=== PATIENT | female | born 1955 | race Caucasian/White ===

== ENCOUNTER 2017-01-15 14:18 | Emergency (ER) | payer OTHER ==
[~2017-01-15 14:18] MED LIST: ALDACTONE25 MG PO; ALLOPURINOL5 GM; AMLODIPINE BESYL5 MG PO; ANTIBIOTIC; ASPIR-TRIN325 MG PO; ASPIRIN ENTERI325 M1 DOB; ASPIRIN81 M2; ASPIRIN81 MG PO; ATENOLOL PO; ATENOLOL25 GM; ATENOLOL50 MG PO; ATORVASTATIN CA80 MG PO; BAYER ASPIRIN325 M1 PO; CALCIUM1 TAB.CHEW; CELEBREX100 MG PO; COMBIVENT MININEB INH; FERRO-TIME325 MG PO; FLEXERIL PO; FUROSEMIDE40 MG PO; GABAPENTIN300 M2 PO; GLIPIZIDE10 MG PO; GLIPIZIDE10 MG/BOTT PO; GLIPIZIDE2.5 MG/BO1; GLUCOPHAGE500 MG PO; GLUCOTROL XL10 MG PO; GRALISE1 EACH; IMDUR-ER30 MG DOB; IMDUR-ER30 MG PO; IRON15 MG/1 ML; ISOSORBIDE DINI30 MG PO; ISOSORBIDE MONO30 M1 PO; ISOSORBIDE MONO30 MG PO; ISOSORBIDE1 GM; KCL PO; LANTUS100 U/M1 SQ; LANTUS100 U/ML; LANTUS100 U/ML SUBQ; LANTUS100 UNITS/ SUBQ; LASIX20 MG; LASIX20 MG PO; LIPITOR; LIPITOR PO; LIPITOR20 MG PO; LIPITOR80 MG PO; LORTAB 7.51 TAB 7.5/ PO; METFORMIN HCL500 M1 PO; METFORMIN HYDRO25 GM; METFORMIN PO; NEURONTIN600 MG PO; NITROGLYGERIN0.4 MG SL; NOVOLOG100 U/ML SUBQ; PERCOCET 10/3251 TAB PO; PHENERGAN25 MG PO; POTASSIUM99 M1; PREDNISONE10 MG PO; QUINAPRIL HCL20 M1; QUINAPRIL HCL20 M1 PO; QUINAPRIL HCL20 MG PO; TENORMIN50 MG PO; VICODIN PO; VITAMIN D 22000 UNIT; VITAMIN D31000 UNI1 PO; VITAMIN D31000 UNIT PO
[2017-01-15 14:45] LABS: URINE SOURCE CLEAN CATCH
[2017-01-15 14:54] LABS: URINE APPEARANCE CLEAR; URINE BILIRUBIN NEG (NEG); URINE BLOOD TRACE-LYSED (NEG); URINE COLOR YELLOW; URINE GLUCOSE 100 MG/DL (NORM); URINE KETONE NEG (NEG); URINE LEUKOCYTE ESTERASE NEG (NEG); URINE NITRATE NEG (NEG); URINE PH 5.5 (5-8); URINE PROTEIN NEG (NEG); URINE SPECIFIC GRAVITY 1.015 (1.003-1.035)
[2017-01-15 15:08] LABS: MICRO INDICATED? YES
[2017-01-15 15:09] LABS: CULTURE INDICATED? NO; URINE BACTERIA NEG (NEG); URINE RBC 0-2 /[HPF] (0-2); URINE WBC 0-2 /[HPF] (0-5)
== END 2017-01-15 16:18 | disposition home or self-care (01) ==
LOC: SED 14:18
PROVIDERS: Emergency Medicine
DX: S39.012A Strain of muscle, fascia and tendon of lower back, initial encounter (principal); E11.65 Type 2 diabetes mellitus with hyperglycemia; I10 Essential (primary) hypertension; F17.200 Nicotine dependence, unspecified, uncomplicated; Z98.890 Other specified postprocedural states; Z88.1 Allergy status to other antibiotic agents; X58.XXXA Exposure to other specified factors, initial encounter; Y92.009 Unspecified place in unspecified non-institutional (private) residence as the place of occurrence of the external cause
CPT/HCPCS: 81003; 82947; 96372; 99283; J1885

== ENCOUNTER 2017-01-17 09:08 | Emergency (ER) | payer OTHER ==
--- NOTE | ~2017-01-17 | CT98 ---
[facility] A Service of [facility] & [facility] RADIOLOGY TEXT RESULTS PATIENT: HEMA TOBIAS LOCATION: [facility] : 53 UNIT #: [id number] AGE: [address]: Kisha Person SEX: F ORDER DR: [id number] [facility] [address] [place], [place] [address] [id number] E MR#: [id number] Acc #: [id number] NAME: HEMA TOBIAS. : 1955 SEX: F STUDY DATE/TIME: 01/17/2017 9:45 UNIT: [facility] ROOM: STUDY DESCRIPTION: CT Lumbar Spine Wo Cont Attending Physician: Kisha Person Pa-C Ordering Physician: Kisha Person Pa-C Primary Care Physician: Primary Care Physician No MEDICAL IMAGING REPORT This report is preliminary unless electronic signature is present EXAM CT lumbar spine, 01/17/2017 HISTORY CHF, hypertension, insulin dependent diabetes. Breast cancer 2008. Prior back surgery. Low back pain radiates to legs since 01/14/2017. TECHNIQUE This CT exam was performed with one or more of the following radiation dose reduction techniques: automatic exposure control, adjustment of mA and/or kV according to patient size, and iterative reconstruction. FINDINGS CT of the lumbar spine performed. Bone and soft tissue windows reviewed. Sagittal and coronal reconstructions performed. Study limited due to motion artifact and beam hardening artifact related to the patient's large body habitus. The visualized lung bases are clear. Visualized portions of liver, spleen, pancreas unremarkable. Indeterminate 1.3 cm x 1.5 cm nodule in the left adrenal gland unchanged from May 2013 and favored to be benign/adenoma given stability over this time frame. The visualized kidneys are unremarkable. The visualized alimentary canal shows evidence of sigmoid diverticulosis. Extensive atherosclerotic arterial calcification. No aneurysm. 5 lumbar-type vertebral segments. Straightening of the normal lumbar lordosis. 2.0 mm anterolisthesis L4 on L5 likely due to prominent facet and disc degenerative change at this level. The vertebral body heights are normal. There is mild generalized narrowing of intervertebral disc spaces with moderate narrowing at L4-L5 including vacuum disc phenomena L4-L5. There is marked narrowing of the L5-S1 intervertebral disc. There is no fracture. Believe the patient is status post left L5 laminotomy. Please correlate with surgical history. T11-T12, T12-L1, L1-L2: No disc bulge or herniation. Spinal canal diameter normal. Neural foramina patent without evidence of exiting nerve STS. [facility] A Service of [facility] RADIOLOGY TEXT RESULTS PATIENT: HEMA TOBIAS LOCATION: [facility] : 53 UNIT #: [id number] AGE: [address]: Kisha Person SEX: F ORDER DR: impingement. L2-L3: Moderate facet degenerative change. Mild posterior concentric disc bulge. Somewhat short pedicles. Straightening of the anterior thecal sac. Mild central spinal canal narrowing. Neural foramina patent without evidence of exiting nerve impingement. L3-L4: Somewhat short pedicles in conjunction with mild posterior concentric disc bulge and moderate to marked facet degenerative change. Moderate central spinal canal narrowing. There is narrowing of the bilateral lateral recesses. The neural foramina show mild narrowing. There is no clear indication of exiting nerve impingement. L4-L5: Anterolisthesis of L4 on L5 as noted. Posterior concentric disc bulge in conjunction with the anterolisthesis, relatively short pedicles, and marked facet degenerative change. There is marked spinal canal narrowing. Significant mass effect on the thecal sac. Descending nerve root crowding and significant mass effect on the intrathecal nerve roots felt to be present. There is mass effect on the bilateral lateral recesses probably greater on the right than left overall. Narrowing of the neural foramina right greater than left. Exiting right nerve impingement is a consideration. L5-S1: Posterior disc bulge is suggested. There may be some mass effect on thecal sac. This is difficult to determine given beam-hardening artifact. Moderate to marked facet degenerative changes. Narrowing of the bilateral lateral recesses. Mass effect on descending S1 nerves is a consideration particularly on the left. Correlate with dermatomal exam. There is moderate to marked left foraminal narrowing. Exiting left L5 nerve impingement is a consideration. There is probably no mass effect on the exiting right L5 nerve. IMPRESSION 1. Please see the complete dictation above for full details. The study is somewhat limited secondary to motion artifact and to beam hardening artifact related to the patient's large body habitus. 2. There is no evidence of acute fracture or malalignment. Multilevel degenerative changes as outlined in [id number] discussions. Most pronounced findings are at L4-L5. There is baseline spinal canal narrowing due to short pedicles at this level. There is a mild 2.0 mm anterolisthesis of L4 on L5. These factors in conjunction with a posterior concentric disc bulge and marked facet degenerative change is causing severe spinal canal narrowing. There is marked mass effect on the thecal sac. Descending nerve root crowding and mass effect on the intrathecal nerve roots is felt to be present. There is significant mass effect on the bilateral lateral recesses, more pronounced on the right than left. Mass effect on descending L5 nerves likely. Right greater than left foraminal narrowing. Mass effect on the exiting right L4 nerve is a consideration. Please see [facility] A Service of [facility] RADIOLOGY TEXT RESULTS PATIENT: HEMA TOBIAS LOCATION: [facility] : 53 UNIT #: [id number] AGE: [address]: Kisha Person SEX: F ORDER DR: discussion of significant degenerative changes at other levels in body of report. 3. Atherosclerotic arterial calcifications. Relatively small caliber distal aorta. Combination of [place] small vessel and atherosclerotic disease could, in the appropriate clinical context, lead to symptomatic lower extremity vascular insufficiency. Correlate clinically. 4. Stable 1.3 cm x 1.5 cm indeterminate left adrenal nodule. No change from 2013 favors benign etiology such as adenoma. 5. Diverticulosis. Dictated by... Mynor Nieves M.D. THIS IS AN ELECTRONICALLY VERIFIED REPORT Mynor Nieves M.D. at 01/18/2017 5:13 PM GIAN/wesly TD: 01/17/2017 13:30 JOB #: [id number] MEDICAL IMAGING REPORT Page 1 of 1 COPY
== END 2017-01-17 12:34 | disposition home or self-care (01) ==
LOC: CED 09:08
DX: M54.16 Radiculopathy, lumbar region (principal); E11.9 Type 2 diabetes mellitus without complications; I10 Essential (primary) hypertension; F17.210 Nicotine dependence, cigarettes, uncomplicated; Z88.8 Allergy status to other drugs, medicaments and biological substances; Z79.4 Long term (current) use of insulin; Z79.82 Long term (current) use of aspirin
CPT/HCPCS: 72131; 99284; J1885; J2360

== ENCOUNTER 2017-04-11 12:42 | Emergency (ER) | payer OTHER ==
--- NOTE | ~2017-04-11 | CR132 ---
[facility] A Service of [facility] & [facility] RADIOLOGY TEXT RESULTS PATIENT: HEMA TOBIAS LOCATION: [facility] : 53 UNIT #: [id number] AGE: [address]: Tucker Malone DO SEX: F ORDER DR: [id number] [facility] [address] [place], [place] [address] [id number] E MR#: [id number] Acc #: [id number] NAME: HEMA TOBIAS : 1955 SEX: F STUDY DATE/TIME: 04/11/2017 13:47 UNIT: [facility] ROOM: STUDY DESCRIPTION: CR Forearm 2 View Lt Attending Physician: Tucker Malone D.O. Ordering Physician: Tucker Malone D.O. Primary Care Physician: No Primary Care Physician MEDICAL IMAGING REPORT This report is preliminary unless electronic signature is present EXAM Left forearm, 04/11/17. HISTORY 62-year-old female with left forearm pain and weakness for 2 weeks. Possible infection. COMPARISON None. FINDINGS Two views of the left forearm demonstrate no acute fracture or dislocation. No plain film evidence of osteomyelitis. Soft tissues are grossly unremarkable. No radiopaque foreign bodies or soft tissue gas. IMPRESSION Unremarkable left forearm. Dictated by... Matty Parnell M.D. THIS IS AN ELECTRONICALLY VERIFIED REPORT Matty Parnell M.D. at 04/13/2017 4:39 PM FRANCISCO/veronica TD: 04/11/2017 17:05 JOB #: [id number] MEDICAL IMAGING REPORT Page 1 of 1 COPY
[2017-04-11 14:17] LABS: BASOPHIL% 0.4 % (0-2.5); EOSINOPHIL# 0.1 X10e3 (0-0.7); EOSINOPHIL% 0.6 % (0.0-7.0); HEMATOCRIT 44.9 % (35.0-45.0); HEMOGLOBIN 15.5 gm/dL (12.0-16.0); LYMPHOCYTE# 1.6 X10e3 (1.0-3.5); LYMPHOCYTE% 16.2 % (17.0-45.0); MEAN CELL VOLUME 88.7 FL (83-96); MEAN CORPUSCULAR HEMOGLOBIN 30.6 PG (28-34); MEAN CORPUSCULAR HGB CONC 34.5 g/dL (30-36); MEAN PLATELET VOLUME 8.8 FL (6.5-11.5); MONOCYTE# 0.4 X10e3 (0-1.0); MONOCYTE% 4.6 % (3.0-12.0); NEUTROPHIL# 7.5 X10e3 (1.5-7.1); NEUTROPHIL% 78.2 % (40-75); PLATELET COUNT 181 X10e3 (140-420); RED BLOOD COUNT 5.05 X10e (3.90-5.30); RED CELL DISTRIBUTION WIDTH 14.6 % (11.0-15.5); WHITE BLOOD COUNT 9.6 X10e3 (4.0-10.5)
[2017-04-11 14:34] LABS: ALBUMIN SERUM 3.7 g/dL (3.5-5.0); BILIRUBIN, DIRECT 0.3 mg/dL (0.0-0.2); BILIRUBIN,INDIRECT 0.6 mg/dL (0.0-0.9); BILIRUBIN,TOTAL 0.9 mg/dL (0.2-2.0); BUN/CREATININE RATIO 17.5; CALCIUM SERUM 8.9 mg/dL (8.4-10.2); CREATININE SERUM 0.8 mg/dL (0.6-1.4); PROTEIN TOTAL SERUM 7.9 g/dL (6.0-8.3)
[2017-04-11 14:35] LABS: POTASSIUM 3.1 mmol/L (3.5-5.1)
[2017-04-11 14:37] LABS: DIFF IND YES
[2017-04-11 14:39] LABS: URINE SOURCE CLEAN CATCH
[2017-04-11 14:45] LABS: PLATELET ESTIMATE NORMAL (NORMAL); STOMATOCYTE PRESENT
[2017-04-11 14:52] LABS: URINE APPEARANCE CLEAR; URINE BILIRUBIN NEG (NEG); URINE BLOOD NEG (NEG); URINE COLOR YELLOW; URINE GLUCOSE 100 MG/DL (NEG); URINE KETONE NEG (NEG); URINE LEUKOCYTE ESTERASE NEG (NEG); URINE NITRATE NEG (NEG); URINE PROTEIN NEG (NEG); URINE SPECIFIC GRAVITY 1.014 (1.003-1.035)
[2017-04-11 15:08] LABS: CULTURE INDICATED? NO
== END 2017-04-11 15:43 | disposition home or self-care (01) ==
LOC: CED 12:42
PROVIDERS: Emergency Medicine
DX: L03.114 Cellulitis of left upper limb (principal); I10 Essential (primary) hypertension; E78.5 Hyperlipidemia, unspecified; E11.9 Type 2 diabetes mellitus without complications; Z88.1 Allergy status to other antibiotic agents
CPT/HCPCS: 73090; 80048; 80076; 81003; 84484; 85025; 96365; 99284

== ENCOUNTER 2017-05-02 14:10 | Emergency (ER) | payer OTHER | END 2017-05-02 15:35 | disposition home or self-care (01) | LOC: CED 14:10 | DX: L03.114 Cellulitis of left upper limb (principal); L72.9 Follicular cyst of the skin and subcutaneous tissue, unspecified; E78.5 Hyperlipidemia, unspecified; E11.9 Type 2 diabetes mellitus without complications; Z88.1 Allergy status to other antibiotic agents | CPT/HCPCS: 99282 ==

== ENCOUNTER 2017-06-13 15:57 | Emergency (ER) | payer OTHER ==
[~2017-06-13] VITALS: Ht 171.4 cm; Wt 89.8 kg
--- NOTE | ~2017-06-13 | CR72 ---
[facility] A Service of [facility] / [facility] RADIOLOGY TEXT RESULTS PATIENT: HEMA TOBIAS LOCATION: [facility] : 51 UNIT #: [id number] AGE: [address]: Zhen West MD SEX: F ORDER DR: [id number] [facility] [address] [place], [place] [address] [id number] E MR#: [id number] Acc #: [id number] NAME: HEMA TOBIAS : 1955 SEX: F STUDY DATE/TIME: 06/13/2017 17:01 UNIT: [facility] ROOM: STUDY DESCRIPTION: CR Chest Single View Portable Attending Physician: Paco West M.D. Ordering Physician: Ed Duke Maldonado M.D. Primary Care Physician: Anamika Rodriguez M.D. MEDICAL IMAGING REPORT This report is preliminary unless electronic signature is present EXAM Portable chest. HISTORY Shortness breath, weakness and bilateral leg pain beginning a month ago. TECHNIQUE Single AP view chest was obtained. COMPARISON Compared with 09/23/2016. FINDINGS Postoperative changes of median sternotomy are seen with postoperative changes also noted in the left axilla. Mild cardiomegaly is noted. In the lungs pulmonary vascular markings are borderline prominent with pulmonary vascular redistribution noted. This has not changed significantly. No pleural fluid is seen and no focal infiltrates are noted. IMPRESSION Borderline pulmonary vascular congestion unchanged from previous exam. Mild cardiomegaly is also unchanged. Dictated by... Mickey Desai M.D. THIS IS AN ELECTRONICALLY VERIFIED REPORT Mickey Desai M.D. at 06/15/2017 7:07 AM RLF/gz TD: 06/14/2017 08:00 JOB #: [id number] [facility] A Service [facility] RADIOLOGY TEXT RESULTS PATIENT: HEMA TOBIAS LOCATION: [facility] : 53 UNIT #: [id number] AGE: [address]: Zhen West MD SEX: F ORDER DR: MEDICAL IMAGING REPORT Page 1 of 1 COPY
--- NOTE | ~2017-06-13 | EKG ---
PATIENT: HEMA TOBIAS UNIT #: [id number] Ventricular Rate: 72 BPM Atrial Rate: 72 BPM P-R Interval: 206 ms QRS Duration: 92 ms Q-T Interval: 444 ms QTC Calculation(Bezet): 486 ms P Carmel: 21 degrees Calculated R Carmel: -14 degrees Calculated T Carmel: 145 degrees Diagnosis Line: Normal sinus rhythm Diagnosis Line: Inferior infarct (cited on or before 30-NOV-2013) Diagnosis Line: ST and T wave abnormality, consider lateral ischemia Diagnosis Line: Abnormal ECG Diagnosis Line: When compared with ECG of 13-SEP-2016 22:53, Diagnosis Line: No significant change was found Diagnosis Line: Confirmed by TRIXIE DAVENPORT MD ([id number]) on 06/14/2017 Diagnosis Line: 7:17:12 AM INTERPRETING MD: ETHEL HARPER
[2017-06-13 17:08] LABS: BASOPHIL% 0.3 % (0-2.5); EOSINOPHIL# 0.1 X10e3 (0-0.7); EOSINOPHIL% 0.9 % (0.0-7.0); HEMOGLOBIN 13.3 gm/dL (12.0-16.0); LYMPHOCYTE# 1.4 X10e3 (1.0-3.5); LYMPHOCYTE% 20.9 % (17.0-45.0); MEAN CELL VOLUME 90.7 FL (83-96); MEAN CORPUSCULAR HEMOGLOBIN 31.7 PG (28-34); MEAN CORPUSCULAR HGB CONC 34.9 g/dL (30-36); MONOCYTE# 0.4 X10e3 (0-1.0); MONOCYTE% 6.2 % (3.0-12.0); NEUTROPHIL# 4.9 X10e3 (1.5-7.1); NEUTROPHIL% 71.7 % (40-75); PLATELET COUNT 138 X10e3 (140-420); RED BLOOD COUNT 4.19 X10e (3.90-5.30); RED CELL DISTRIBUTION WIDTH 15.1 % (11.0-15.5); WHITE BLOOD COUNT 6.9 X10e3 (4.0-10.5)
[2017-06-13 17:12] LABS: DIFF IND NO
[2017-06-13 17:17] LABS: POC - CKMB 2.6 ng/mL (0.0-7.9); POC - TROPONIN <0.05 ng/mL (<=0.05)
[2017-06-13 17:33] LABS: ALBUMIN SERUM 3.9 g/dL (3.5-5.0); BILIRUBIN, DIRECT 0.3 mg/dL (0.0-0.2); BILIRUBIN,INDIRECT 1.2 mg/dL (0.0-0.9); BILIRUBIN,TOTAL 1.5 mg/dL (0.2-2.0); CALCIUM SERUM 8.9 mg/dL (8.4-10.2); GLOM FILT RATE Estimated 59.5 mL/min (>60); PROTEIN TOTAL SERUM 7.3 g/dL (6.0-8.3)
[2017-06-13 18:23] LABS: URINE SOURCE CLEAN CATCH
[2017-06-13 18:30] LABS: URINE APPEARANCE CLOUDY; URINE BILIRUBIN NEG (NEG); URINE BLOOD NEG (NEG); URINE COLOR YELLOW; URINE GLUCOSE NEG (NEG); URINE KETONE NEG (NEG); URINE LEUKOCYTE ESTERASE TRACE (NEG); URINE NITRATE NEG (NEG); URINE PH 5.5 (5-8); URINE PROTEIN NEG (NEG); URINE SPECIFIC GRAVITY 1.016 (1.003-1.035)
[2017-06-13 18:34] LABS: CULTURE INDICATED? YES; URINE BACTERIA AUWI 3+ (NEGATIVE); URINE SQUAMOUS EPITHELIAL CELL MANY /[HPF]
[2017-06-13 18:55] LABS: POC - CKMB 1.7 ng/mL (0.0-7.9); POC - TROPONIN <0.05 ng/mL (<=0.05)
== END 2017-06-13 19:49 | disposition home or self-care (01) ==
LOC: CED 15:57
PROVIDERS: Emergency Medicine
DX: E87.6 Hypokalemia (principal); N39.0 Urinary tract infection, site not specified; I25.10 Atherosclerotic heart disease of native coronary artery without angina pectoris; I11.0 Hypertensive heart disease with heart failure; I50.9 Heart failure, unspecified; E11.9 Type 2 diabetes mellitus without complications; F17.210 Nicotine dependence, cigarettes, uncomplicated
CPT/HCPCS: 36415; 71010; 80048; 80076; 81003; 82553; 82947; 84484; 85025; 87086; 93005; 96374; 99285; J1885

== ENCOUNTER 2017-06-20 01:09 | Inpatient (IN) | payer OTHER ==
[~2017-06-20] VITALS: Ht 170.2 cm; Wt 88.2 kg
--- NOTE | ~2017-06-20 | DS ---
Unit #: [id number] #: [id number] Patient: HEMA TOBIAS [id number] [address] [address] [id number] I MR#: [id number] NAME: HEMA TOBIAS. ROOM: 319 Age: 62 Sex: F Admission Date: 06/20/2017 : 1955 Discharge Date: 06/21/2017 Attending Physician: Purnima Fernández M.D. Primary Care Physician: Deja Pan M.D. DISCHARGE SUMMARY DISCHARGE DIAGNOSES 1. Acute systolic heart failure, ejection fraction 50% with a history of ejection fraction 40%-45%. 2. Hypokalemia. 3. Acute chronic obstructive pulmonary disease with exacerbation. 4. Acute hypoxic respiratory failure. 5. Diabetes mellitus type 2, uncontrolled, with peripheral neuropathy. 6. Breast cancer, status post left mastectomy history. 7. Ongoing smoking. 8. Hypertension. CONSULTANTS None. PROCEDURES None. DIAGNOSTIC DATA LABORATORY: Glucose 344, sodium 135, potassium 4.2, creatinine 0.9, white blood cell count 5.1, hemoglobin 13.1, platelets 103. BNP is 364. IMAGING: Chest x-ray shows mild vascular congestion. ALLERGIES Erythromycin based. DISCHARGE MEDICATIONS 1. Neurontin 600 mg q.i.d. 2. Metformin 500 t.i.d. 3. Januvia 100 daily. 4. Nicotine 21 mg transdermal daily. 5. Norvasc 5 daily. 6. Tenormin 50 p.o. b.i.d. 7. Lasix 20 daily. 8. Accupril 20 daily. 9. Levemir 60 units subcutaneous b.i.d. 10. Ferrous sulfate 325 mg p.o. daily. 11. Aspirin 325 mg daily. 12. Potassium 10 mEq daily. 13. Glucotrol 10 mg p.o. b.i.d. 14. Imdur ER 30 mg p.o. daily. 15. Vitamin D 1000 p.o. daily. 16. Albuterol MDI 2 puff inhalation q.i.d. 17. Prednisone 20 mg p.o. daily for 3 days, followed by 10 mg p.o. Unit #: [id number] #: [id number] Patient: HEMA TOBIAS daily for 3 days and then stop. HOSPITAL COURSE 62-year-old admitted because of shortness of breath. Acute systolic heart failure with a history of ejection fraction of 40%-45%. The patient was started on IV Lasix. Currently the patient is on p.o. Lasix. Continue with Tenormin also. She is on Accupril. Chronic obstructive pulmonary disease with exacerbation: Acute hypoxic respiratory failure. The patient currently off oxygen. She does not need home O2 at home. She received IV Solu-Medrol. The patient will be discharged on albuterol and prednisone tapering dose and follow with PCP. Diabetes mellitus type 2: Uncontrolled secondary to steroids. Continue with current Lantus, metformin and Glucotrol. DISPOSITION Discharge home. FOLLOWUP Follow up with family physician in one week time. Dictated by... Lily Garg/gz TD: 06/21/2017 14:20 JOB #: [id number] CC: Deja Pan M.D. DISCHARGE SUMMARY Page 1 of 1 X Purnima Fernández MD X DISCHARGE SUMMARY
--- NOTE | ~2017-06-20 | HP ---
Unit #: [id number] #: [id number] Patient: HEMA TOBIAS [id number] [address] [place], [place] [address] [id number] I MR#: [id number] NAME: HEMA TOBIAS. ROOM: 319 Age: 62 Sex: F Admission Date: 06/20/2017 : 1955 Attending Physician: Barbra Godoy M.D. Primary Care Physician: Deja Pan M.D. HISTORY AND PHYSICAL CHIEF COMPLAINT Weakness, shakiness, hypoxia. HISTORY This pleasant 62-year-old female with essential hypertension, AODM, ischemic cardiomyopathy, is admitted for complaints of weakness, shakiness, and noted to be hypoxic. The patient was seen in this emergency department about a week ago for weakness and was found to have a potassium of 3. Her potassium was replaced. She was thought to possibly have a urinary tract infection. She was given antibiotics, although her urine cultures were ultimately negative. She states that she continued to feel weak, felt very shaky last evening, with tingling in her hands and her feet. She presented to this emergency department early this morning where her O2 sats were about 89%. She was given a small bolus of IV fluids, given 40 mEq of potassium for a potassium level of 2.9. On examination she does have expiratory wheezes bilaterally. Chest x-ray, no acute disease, stable cardiomegaly with mild vascular congestion noted. Her BNP is modestly elevated to 364 but has been higher in the past. Patient denies chest pain, palpitations, shortness of breath or orthopnea. PAST MEDICAL HISTORY 1. Essential hypertension. 2. AODM with peripheral neuropathy. 3. Hyperlipidemia. 4. COPD with ongoing tobacco abuse. 5. Ischemic cardiomyopathy. Last ejection fraction 40% to 45% in 2014. The patient is status post PCI and stent in 2007 following an [place]. Then later required three vessel CABG in 2012. Has a mild MR and moderate severe TR. 6. Breast cancer, status post left mastectomy. 7. Kidney stone. 8. Surgery for kidney stone. 9. Ankle surgery. 10. Back surgery. ALLERGIES Erythromycin. HOME MEDICATIONS 1. Iron 325 mg daily. 2. Metformin 500 mg t.i.d. 3. Neurontin 300 mg t.i.d. Unit #: [id number] #: [id number] Patient: HEMA TOBIAS 4. Glucotrol 10 mg b.i.d. 5. Januvia 100 mg before breakfast. 6. Lasix 20 mg daily. 7. Atenolol 50 mg b.i.d. 8. Imdur 30 mg daily. 9. Vitamin D 1,000 units daily. 10. Lisinopril 20 mg daily. 11. Norvasc 5 mg daily. 12. Aspirin 325 mg daily. FAMILY HISTORY CAD. SOCIAL HISTORY The patient lives with her son and grandson. She smokes one pack per day of tobacco and does not drink alcohol. REVIEW OF SYSTEMS Notable for shakiness, weakness, hypertension, diabetes, hyperlipidemia, COPD, CAD, breast cancer, tobacco use, above mentioned surgeries. All other systems were reviewed and otherwise negative. PHYSICAL EXAMINATION GENERAL: Pleasant, fatigued appearing, moderately obese 62-year-old female currently in no acute distress. VITAL SIGNS: Temperature 98.7, pulse 78, respirations 16, blood pressure 134/91, O2 saturation is 95% on 2 L of oxygen but was only 89% on room air. HEENT: Eyes - PERRLA. Extraocular muscles are intact. Pharynx is benign. Patient has dentures in place. NECK: Supple without adenopathy or thyromegaly. No significant JVD that I can see. CHEST: Chest reveals expiratory wheezes. CARDIAC: Normal S1 and S2. Soft systolic murmur best heard along the left sternal border. ABDOMEN: Bowel sounds are present. No hepatosplenomegaly, tenderness or masses. EXTREMITIES: Without clubbing, cyanosis or edema. Pedal pulses are present. No ulcers on the feet. NEUROLOGIC: Patient is awake, alert and oriented. Cranial nerves are intact. Equal strength throughout. DIAGNOSTIC STUDIES LABS: Hematocrit 37.8, normal white count, platelet count is 116. Has been intermittently mildly low in the past. Normal MCV. SMA 12 - glucose 130, potassium 2.9, chloride 97, BNP 364 but has been higher in the past. Cardiac markers are negative. Urinalysis is negative. IMAGING STUDIES: Chest x-ray - no acute disease. Stable cardiomegaly and mild vascular congestion. CARDIOLOGY STUDIES: EKG - normal sinus rhythm rate 73 with T wave inversions noted in 1, AVL, and some nonspecific ST wave abnormalities noted laterally, which were noted a week ago. ASSESSMENT 1. Weakness and shakiness, which may be related to low O2 sats. 2. Hypokalemia may be also playing a part. 3. Hypokalemia and Lasix. Unit #: [id number] #: [id number] Patient: HEMA TOBIAS 4. Likely COPD with exacerbation and acute hypoxic respiratory failure. 5. Ischemic cardiomyopathy, ejection fraction 40% to 45%. 6. AODM with peripheral neuropathy. 7. Status post left mastectomy for breast cancer. 8. Ongoing tobacco abuse. 9. Essential hypertension. PLANS 1. DuoNeb, steroids, smoking cessation and supplemental oxygen. 2. One dose of IV Lasix, obtain echo and repeat cardiac enzymes. 3. Replace potassium and check magnesium. 4. Check B12 and TSH. 5. DVT prophylaxis. Dictated by Barbra Godoy M.D. AML/ts TD: 06/20/2017 06:27 JOB #: [id number] CC: Anamika Rodriguez M.D. HISTORY AND PHYSICAL Page 1 of 1 X Barbra Godoy MD HISTORY AND PHYSICAL
--- NOTE | ~2017-06-20 | EKG ---
PATIENT: HEMA TOBIAS UNIT #: [id number] Ventricular Rate: 73 BPM Atrial Rate: 73 BPM P-R Interval: 206 ms QRS Duration: 94 ms Q-T Interval: 442 ms QTC Calculation(Bezet): 486 ms P Blanco: 30 degrees Calculated R Blanco: -22 degrees Calculated T Blanco: 120 degrees Diagnosis Line: Normal sinus rhythm Diagnosis Line: Inferior infarct (cited on or before 30-NOV-2013) Diagnosis Line: T wave abnormality, consider lateral ischemia Diagnosis Line: Abnormal ECG Diagnosis Line: When compared with ECG of 13-JUN-2017 16:58, Diagnosis Line: No significant change was found Diagnosis Line: Confirmed by TRIXIE DAVENPORT MD ([id number]) on 06/21/2017 Diagnosis Line: 7:28:17 AM INTERPRETING MD: ETHEL HARPER
--- NOTE | ~2017-06-20 | CR72 ---
[facility] A Service of [facility] & [facility] RADIOLOGY TEXT RESULTS PATIENT: HEMA TOBIAS LOCATION: [facility] 319- : 51 UNIT #: [id number] AGE: [address]: Purnima Fernández MD SEX: F ORDER DR: [id number] [facility] [address] [place], [place] [address] [id number] I MR#: [id number] Acc #: [id number] NAME: HEMA TOBIAS. : 1955 SEX: F STUDY DATE/TIME: 06/20/2017 2:29 UNIT: [address] ROOM: [facility] STUDY DESCRIPTION: CR Chest Single View Portable Attending Physician: Purnima Fernández M.D. Ordering Physician: Azam Hamilton M.D. Primary Care Physician: Deja Pan M.D. MEDICAL IMAGING REPORT This report is preliminary unless electronic signature is present EXAM Portable chest HISTORY Shortness of air today. Weakness. FINDINGS Mild cardiac enlargement. Borderline vascular congestion. Mild interstitial prominence in the lower lungs bilaterally, similar to 06/13/2017. No focal airspace infiltrates. Surgical clips in the left axilla. Sternotomy. IMPRESSION 1. No acute findings and no significant change compared to 06/13/2017. 2. Stable cardiac enlargement and mild vascular congestion and mild interstitial prominence in both lungs. Dictated by... Randy Smith M.D. THIS IS AN ELECTRONICALLY VERIFIED REPORT Randy Smith M.D. at 06/21/2017 4:17 AM TAYE/wesly TD: 06/20/2017 09:08 JOB #: [id number] MEDICAL IMAGING REPORT Page 1 of 1 COPY
[2017-06-20 02:19] LABS: URINE SOURCE CLEAN CATCH
[2017-06-20 02:23] LABS: URINE APPEARANCE CLEAR; URINE BILIRUBIN NEG (NEG); URINE BLOOD NEG (NEG); URINE COLOR YELLOW; URINE GLUCOSE NEG (NEG); URINE KETONE NEG (NEG); URINE LEUKOCYTE ESTERASE NEG (NEG); URINE NITRATE NEG (NEG); URINE PH 6.5 (5-8); URINE PROTEIN NEG (NEG); URINE SPECIFIC GRAVITY 1.006 (1.003-1.035)
[2017-06-20 02:26] LABS: CULTURE INDICATED? NO
[2017-06-20 03:14] LABS: BASOPHIL% 0.7 % (0-2.5); DIFF IND NO; EOSINOPHIL% 0.5 % (0.0-7.0); HEMATOCRIT 37.8 % (35.0-45.0); LYMPHOCYTE# 1.7 X10e3 (1.0-3.5); LYMPHOCYTE% 27.3 % (17.0-45.0); MEAN CELL VOLUME 91.1 FL (83-96); MEAN CORPUSCULAR HEMOGLOBIN 31.3 PG (28-34); MEAN CORPUSCULAR HGB CONC 34.4 g/dL (30-36); MONOCYTE# 0.6 X10e3 (0-1.0); MONOCYTE% 9.4 % (3.0-12.0); NEUTROPHIL# 3.8 X10e3 (1.5-7.1); NEUTROPHIL% 62.1 % (40-75); PLATELET COUNT 116 X10e3 (140-420); RED BLOOD COUNT 4.15 X10e (3.90-5.30); RED CELL DISTRIBUTION WIDTH 15.3 % (11.0-15.5); WHITE BLOOD COUNT 6.2 X10e3 (4.0-10.5)
[2017-06-20 03:23] LABS: POC - CKMB 1.2 ng/mL (0.0-7.9); POC - TROPONIN <0.05 ng/mL (<=0.05)
[2017-06-20 03:38] LABS: ALBUMIN SERUM 3.8 g/dL (3.5-5.0); BILIRUBIN, DIRECT 0.3 mg/dL (0.0-0.2); BILIRUBIN,INDIRECT 1.2 mg/dL (0.0-0.9); BILIRUBIN,TOTAL 1.5 mg/dL (0.2-2.0); BUN/CREATININE RATIO 12.22; CALCIUM SERUM 8.4 mg/dL (8.4-10.2); CREATININE SERUM 0.9 mg/dL (0.6-1.4); GLOM FILT RATE Estimated 67.6 mL/min (>60); PROTEIN TOTAL SERUM 7.3 g/dL (6.0-8.3)
[2017-06-20 03:41] LABS: POTASSIUM 2.9 mmol/L (3.5-5.1)
[2017-06-20] MEDS ORDERED: FERRO-TIME325 MG PO (04:02)
[2017-06-20] MEDS ORDERED: NEURONTIN300 MG PO (04:03)
[2017-06-20] MEDS ORDERED: GLUCOPHAGE500 MG PO (04:03)
[2017-06-20] MEDS ORDERED: JANUVIA PO (04:03)
[2017-06-20] MEDS ORDERED: GLUCOTROL10 MG PO (04:03)
[2017-06-20] MEDS ORDERED: IMDUR-ER30 MG PO (04:04)
[2017-06-20] MEDS ORDERED: VITAMIN D1000 UNIT PO (04:04)
[2017-06-20] MEDS ORDERED: TENORMIN50 MG PO (04:04)
[2017-06-20] MEDS ORDERED: LASIX20 MG PO (04:04)
[2017-06-20] MEDS ORDERED: ST. JOSEPH ASP325 MG PO (04:05)
[2017-06-20] MEDS ORDERED: QUINAPRIL HCL20 MG PO (04:05)
[2017-06-20] MEDS ORDERED: NORVASC PO (04:05)
[2017-06-20 11:44] LABS: BUN/CREATININE RATIO 13.75; CALCIUM SERUM 8.6 mg/dL (8.4-10.2); CREATININE SERUM 0.8 mg/dL (0.6-1.4); POTASSIUM 3.5 mmol/L (3.5-5.1)
[2017-06-20 12:08] LABS: MB 1.9 ng/ml
[2017-06-20 16:15] LABS: %MB 2.4 % (0.0-4.0); MB 2.5 ng/ml
[2017-06-21 04:56] LABS: HEMATOCRIT 39.4 % (35.0-45.0); HEMOGLOBIN 13.1 gm/dL (12.0-16.0); MEAN CELL VOLUME 92.2 FL (83-96); MEAN CORPUSCULAR HEMOGLOBIN 30.7 PG (28-34); MEAN CORPUSCULAR HGB CONC 33.3 g/dL (30-36); MEAN PLATELET VOLUME 9.4 FL (6.5-11.5); RED BLOOD COUNT 4.28 X10e (3.90-5.30); RED CELL DISTRIBUTION WIDTH 14.9 % (11.0-15.5); WHITE BLOOD COUNT 5.1 X10e3 (4.0-10.5)
[2017-06-21 05:31] LABS: BUN/CREATININE RATIO 15.55; CALCIUM SERUM 9.4 mg/dL (8.4-10.2); CREATININE SERUM 0.9 mg/dL (0.6-1.4); GLOM FILT RATE Estimated 67.6 mL/min (>60); POTASSIUM 4.2 mmol/L (3.5-5.1)
[2017-06-21] MEDS ORDERED: NEURONTIN PO (13:44)
[2017-06-21] MEDS ORDERED: PREDNISONE PO (13:46)
[2017-06-21] MEDS ORDERED: POTASSIUM CHLO10 ME2 PO (13:47)
[2017-06-21] MEDS ORDERED: ALBUTEROL17 GM INH (13:47)
== END 2017-06-21 14:32 | disposition home or self-care (01) | DRG 291 ==
LOC: CED 01:09 → CEDOF 05:00 → CED 05:12 → CEDOF 05:12 → C3A PCU 06:10
PROVIDERS: Emergency Medicine; Internal Medicine
PROC: B246YZZ Ultrasonography of Right and Left Heart using Other Contrast (ICD-10-PCS; principal; 2017-06-20)
DX: I11.0 Hypertensive heart disease with heart failure (principal); J96.01 Acute respiratory failure with hypoxia; J44.1 Chronic obstructive pulmonary disease with (acute) exacerbation; I50.21 Acute systolic (congestive) heart failure; E87.6 Hypokalemia; E11.65 Type 2 diabetes mellitus with hyperglycemia; E11.42 Type 2 diabetes mellitus with diabetic polyneuropathy; F17.200 Nicotine dependence, unspecified, uncomplicated; Z85.3 Personal history of malignant neoplasm of breast; I25.5 Ischemic cardiomyopathy; I25.10 Atherosclerotic heart disease of native coronary artery without angina pectoris; Z95.1 Presence of aortocoronary bypass graft; Z95.5 Presence of coronary angioplasty implant and graft; I08.1 Rheumatic disorders of both mitral and tricuspid valves; Z87.442 Personal history of urinary calculi; Z88.1 Allergy status to other antibiotic agents; Z79.84 Long term (current) use of oral hypoglycemic drugs; Z79.82 Long term (current) use of aspirin
CPT/HCPCS: 36415; 71010; 80048; 80076; 81003; 82550; 82553; 82607; 82947; 83735; 83880; 84443; 84484; 85025; 85027; 93005; 93306; 94640; 94760; 96360; 99285; J1650; J1815; J1940; J2920